=== PATIENT | female | born 2000 | race African-American/Black ===

== ENCOUNTER 2025-07-24 22:33 | Emergency (ER) | payer BC ==
[~2025-07-24] VITALS: Ht 162.6 cm; Wt 60.3 kg
[2025-07-24 22:34] VITALS: BP 126/78
[2025-07-24] MEDS ORDERED: RIVAROXABAN 15 MG TABLET PO ONE (23:00)
[2025-07-24 23:08] LABS: *BILIRUBIN,URIN NEGATIVE (NEGATIVE); *BLOOD, URINE NEGATIVE (NEGATIVE); *COLOR,URINE YELLOW (YELLOW); *KETONES,URINE NEGATIVE (NEGATIVE); *PROTEIN,URINE NEGATIVE (NEGATIVE); *UROBILINOGEN,URINE 1.0 E.U./dl (NORMAL); LEUKOCYTE ESTERASE ,URINE TRACE (NEGATIVE); NITRITE, URINE NEGATIVE (NEGATIVE); UGLUCOSE NEGATIVE (NEGATIVE)
[2025-07-24 23:09] LABS: *CLARITY,URINE HAZY (CLEAR)
[2025-07-24 23:10] LABS: *URINE HCG, QUAL NEGATIVE (NEGATIVE)
[2025-07-24 23:12] LABS: SQUAMOUS EPITHELIAL CELL,UR MODERATE /HPF (NONE SEEN)
[2025-07-25 00:15] VITALS: BP 126/78; TEMP 98; O2SAT 98
== END 2025-07-25 00:17 | disposition home or self-care (01) ==
LOC: ER 22:33
DX: S30.11XA Contusion of abdominal wall, initial encounter (principal); Z88.7 Allergy status to serum and vaccine; V43.52XA Car driver injured in collision with other type car in traffic accident, initial encounter; Y93.89 Activity, other specified; Y92.89 Other specified places as the place of occurrence of the external cause; Y99.9 Unspecified external cause status
CPT/HCPCS: 84703; 87086; A4606; A4663